=== PATIENT | male | born 1960 | race Caucasian/White ===

== ENCOUNTER → 2022-05-20 | Day surgery (SDC) | payer MEDICARE, OTHER ==
[~2022-05-20] VITALS: Ht 166.4 cm; Wt 98.9 kg
[~2022-05-20] MED LIST: ACET-2708 PO; ASPI-1497 PO; ATOR-2 PO; BALANCED SALT IRRIG SOLN COMB1 500ML OP NR; CLOP-31 PO; GLIP10TA10 PO; HYALURONATE SODIUM 10 MG/ML 0.55ML SYRINGE IO ONE; LIDOCAINE HCL 2%/EPINEPHRINE 1:100,000 20 ML VIAL INFIL ONE; METF-414 PO; METHYLPREDNISOLONE ACETATE 40MG/ML VIAL ONE; METO25TA6 PO; MIDAZOLAM HCL 2 MG/2 ML VIAL ONE; NIFE-33 PO; ONDANSETRON HCL 4MG/2ML INJ ONE; PHENYLEPHRINE 2.5% OPHTH 15 DROP/ML BOTTLE LEFTEYE ONE; PHENYLEPHRINE HCL 10 MG/ML 1ML (IV VIAL) IV ONE; PROPOFOL 200MG/20ML VIAL IV ONE; SODIUM CHLORIDE 0.9% 1,000 ML IV SCH; TOBRAMYCIN/DEXAMETH 0.1/0.3% OPHTH SUSP 2.5ML LEFTEYE SCH; TOPUD PO; TROPICAMIDE 1% OPHTH DROPS 15ML LEFTEYE ONE
[2022-05-20 09:05] LABS: BASOPHILS % 0.6 % (0.0-2.0); EOSINOPHILS % 6.8 % (0.0-5.0); HEMATOCRIT. 39.2 % (42.0-52.0); HEMOGLOBIN. 13.1 g/dL (14.0-18.0); LYMPHOCYTES % 11.3 % (20.0-50.0); MEAN CORPUSCULAR HEMOGLOBIN 28.7 pg (28.0-32.0); MEAN CORPUSCULAR VOLUME 85.8 fL (80.0-94.0); MEAN PLATELET VOLUME 7.9 fl (7.4-10.4); MONOCYTES % 4.3 % (2.0-8.0); PLATELET 334 x1000/uL (130-400); RED BLOOD CELL COUNT 4.56 mill/uL (4.7-6.1); RED CELL DISTRIBUTION WIDTH 15.3 % (11.6-14.6)
[2022-05-20 09:43] LABS: CHLORIDE 107 mEq/L (98-107)
== END | disposition home or self-care (01) ==
LOC: OR 08:28
PROVIDERS: ATTEND Ophthalmology
DX: E11.36 Type 2 diabetes mellitus with diabetic cataract (principal); H25.89 Other age-related cataract; I10 Essential (primary) hypertension; E78.5 Hyperlipidemia, unspecified; J45.909 Unspecified asthma, uncomplicated; Z86.73 Personal history of transient ischemic attack (TIA), and cerebral infarction without residual deficits; Z79.82 Long term (current) use of aspirin; Z79.84 Long term (current) use of oral hypoglycemic drugs; Z79.899 Other long term (current) drug therapy; Z98.890 Other specified postprocedural states
CPT/HCPCS: 36415; 66984; 67010; 80048; 85025; J1030; J2250; J2370; J2405; J2704; J3490; V2630